=== PATIENT | female | born 1950 | race Two or more races ===

== ENCOUNTER 2021-01-29 08:29 | Emergency (ER) | payer SELFPAY ==
[2021-01-29] MEDS ORDERED: ACETAMINOPHEN 325 MG TABLET (FP) PO ONE (08:38)
[2021-01-29] MEDS ORDERED: ACETAMINOPHEN 325 MG TABLET (FP) ONE (08:48)
[2021-01-29 09:38] VITALS: BP 142/84; PULSE 76; TEMP 98; BMI 31.1
== END 2021-01-29 10:10 | disposition home or self-care (01) ==
LOC: FER 08:29
DX: M25.561 Pain in right knee (principal)
CPT/HCPCS: 73562-TC-LT-FY; 99283-25